=== PATIENT | male | born 1950 | race Native Hawaiian/Other Pacific Islander ===

== ENCOUNTER 2017-04-19 20:18 | Outpatient (CLI) | payer OTHER | END 2017-04-19 20:25 | disposition short-term general hospital (02) | LOC: AMB 20:18 | DX: R53.1 Weakness (principal); I95.89 Other hypotension | CPT/HCPCS: A0425; A0427 ==

== ENCOUNTER 2017-04-19 20:45 | Emergency (ER) | payer OTHER ==
[~2017-04-19] VITALS: Ht 177.8 cm; Wt 74.8 kg
[2017-04-19 21:17] LABS: PLATELET COUNT 227 K/uL (142-355)
[2017-04-19 21:28] LABS: POTASSIUM 3.5 mmol/L (3.6-5.2); SODIUM 139 mmol/L (136-145)
[2017-04-19 21:42] LABS: PARTIAL THROMBOPLASTIN TIME 24.5 SECONDS (24.5-33.6)
[2017-04-20 02:45] VITALS: BP 121/57; TEMP 98.2
== END 2017-04-20 02:45 | disposition short-term general hospital (02) ==
LOC: ED 20:45
PROVIDERS: Specialist
DX: R55 Syncope and collapse (principal); I95.89 Other hypotension
CPT/HCPCS: 80053; 82550; 83880; 84484; 85027; 85379; 85610; 85730; 96365; 96372; 99285; J1650; J1885